=== PATIENT | male | born 1955 | race Caucasian/White ===

== ENCOUNTER 2016-12-19 20:54 | Emergency (ER) | payer OTHER ==
[~2016-12-19] VITALS: Ht 182.9 cm; Wt 108.2 kg
[2016-12-19 20:57] VITALS: BP 148/83; PULSE 71; RESP 16; O2SAT 98
[2016-12-19 21:21] LABS: BASOPHILS % (AUTO) 0.4 % (0-3); EOSINOPHILS % (AUTO) 0.3 % (0-5); MONOCYTES % (AUTO) 5.5 % (4-12); Mean Corpuscular Hemoglobin 29.6 pg (27.0-35.0); NEUTROPHILS % (AUTO) 77.9 % (40-74); Platelet Count 222 bil/L (150-400)
--- NOTE | 2016-12-19 21:35 | ED.REPORT ---
HPI-Abd Pain M 40 and Over Date of Service Dec 19, 2016 ED Provider: Rusty Ballard MD A 61 year old male with a history of hypertension, thyroid disease and diverticulitis approximately 15 years ago presents to the ED complaining of abdominal pain that began when the pt woke at 06:00 this morning. The pain has continued fairly constantly since. The pain is located in the LLQ and has been accompanied by belching, nausea and vomiting, though the pt denies dysuria. He experienced similar symptoms three weeks ago, which resolved on their own. Nursing Notes Stated Complaint: LEFT SIDE ABDOMINAL PAIN Chief Complaint: Male Abdominal Pain Nursing Notes Reviewed: Yes Allergies: Coded Allergies: No Known Drug Allergies (Verified Allergy, Unknown, 12/19/16) Scheduled PRN Naproxen (Naprosyn) 500 Mg Tablet 500 MG PO BID PRN PRN For Pain General Time Seen by MD: 21:35 Chief Complaint Abdominal pain Hx Obtained From: Patient Arrived By: Walk-in Sudden in Onset?: Yes Onset Occurred: 13 - 16 hours ago Symptom Duration: Since onset Recent Healthcare: No recent hospitalization Similar Sx Previous: Yes Past Medical History Past Medical History diverticulitis approximately 15 years ago thyroid disease Reports: Hypertension Past Surgical History left knee Smoking History Unknown if Ever Smoker Social History Other Social History: Good social support Ambulatory Status Independent Review of Systems Constitutional: Denies: Fever Respiratory: Denies: Non-productive cough, Shortness of breath Cardiovascular: Denies: Chest pain GI: Reports: Abdominal pain, Belching, Nausea, Vomiting, Denies: Diarrhea Male: Denies Dysuria Musculoskeletal: Denies: Back pain, Neck pain Complete sys rev & neg: except as marked. Physical Exam Initial Vital Signs Vital Signs (First) Date Time Temp Pulse Resp B/P Pulse Ox O2 Delivery O2 Flow Rate FiO2 12/19/16 20:57 36.6 71 16 148/83 98 Room Air Initial VS: Reviewed General/Constitutional: Awake, Alert Respiratory / Chest: Atraumatic, Breath sounds NL, Breath sounds = bilat, No respiratory distress Cardiovascular: Heart rate NL, Regular rhythm, Heart sounds NL Abdomen: Atraumatic, Soft, No guarding, No rebound mild tenderness in the LLQ no rigidity Back: Atraumatic, Full range of motion Head / Eyes: Atraumatic, Normocephalic, PERRL, EOMI ENT: Atraumatic, Airway patent, Mucous membranes moist Skin: Atraumatic, Color NL, No rash, Warm, Dry Neurologic: Oriented X3, Speech NL, No motor deficits, No sensory deficits Neck: Atraumatic, Supple, Full range of motion Upper Extremity / MS: Atraumatic, Full range of motion Lower Extremity / Pelvis / MS: Atraumatic, Full range of motion Psychiatric: Affect NL, Mood NL Interpretation & Diagnostics Lab Results Interpretation Result Diagram: 12/19/16211712/19/162117 Test 12/19/16 21:18 12/19/16 21:55 White Blood Count 10.1th/mm3 (3.8-10.1) Red Blood Count 5.00mil/mm3 (4.40-5.80) Hemoglobin 14.8g/dL (13.8-17.2) Hematocrit 43.0% (41.0-50.0) Mean Corpuscular Volume 86.0fL (81-100) Mean Corpuscular Hemoglobin 29.6pg (27.0-35.0) Mean Corpuscular Hemoglobin Concent 34.4% (32.0-37.0) Red Cell Distribution Width 12.7% (12.3-15.4) Platelet Count 222bil/L (150-400) Neutrophils (%) (Auto) 77.9% (40-74) Lymphocytes (%) (Auto) 15.8% (14-46) Monocytes (%) (Auto) 5.5% (4-12) Eosinophils (%) (Auto) 0.3% (0-5) Basophils (%) (Auto) 0.4% (0-3) Sodium Level 138mEq/L (134-144) Potassium Level 4.4mEq/L (3.5-5.2) Chloride Level 103mEq/L (97-108) Carbon Dioxide Level 21mmol/L (18-29) Blood Urea Nitrogen 13mg/dL (8-27) Creatinine 1.53mg/dL (0.76-1.27) Estimat Glomerular Filtration Rate 50mL/min (>59) Glucose Level 146mg/dL (60-99) Calcium Level 9.3mg/dL (8.5-10.1) Magnesium Level 1.8mg/dL (1.6-2.6) Total Bilirubin 0.4mg/dL (0.0-1.2) Aspartate Amino Transf (AST/SGOT) 20U/L (0-50) Alanine Aminotransferase (ALT/SGPT) 21U/L (0-44) Alkaline Phosphatase 77U/L (25-160) Total Protein 7.4g/dL (6.4-8.4) Albumin 4.5g/dL (3.4-5.0) Lipase 38U/L (13-60) Hold [place] Top Tube Received (Received) Urine Color Yellow (YELLOW) Urine Appearance Clear (CLEAR,HAZY) Urine pH 5.0 (5.0-8.0) Urine Specific [place] 1.030 (1.003-1.035) Urine Protein Negativemg/dL (NEG,TRACE) Urine Glucose (UA) Negativemg/dL (NEGATIVE) Urine Ketones Negativemg/dL (NEGATIVE) Urine Occult Blood Large (NEGATIVE) Urine Nitrite Negative (NEGATIVE) Urine Bilirubin Negative (NEGATIVE) Urine Urobilinogen Normalmg/dL (NORMAL) Urine Leukocyte Esterase Negative (NEGATIVE) Urine RBC 11-50/hpf (0-2) Urine WBC 6-10/hpf (0-5) Urine Epithelial Cells Many/hpf (NONE-MOD) Urine Crystals None seen (NONE SEEN) Urine Bacteria Few/hpf (NONE-FEW) Urine Hyaline Casts None/lpf (NONE) Urine Granular Casts None seen (NONE SEEN) Urine Waxy Casts None seen (NONE SEEN) Urine Red Blood Cell Casts None seen (NONE SEEN) Urine White Blood Cell Casts None seen (NONE SEEN) Urine Mucus Present (None Seen) Urine Trichomonas None seen (NONE SEEN) Urine Yeast None (NONE SEEN) Urinalysis Comment None Urine Culture Reflexed Indicated CT Abd / Pelvis Interpretation CONCLUSION: 1 mm mildly obstructing stone of the left ureterovesical junction. Diverticulosis without acute diverticulitis. Interpretation / Wet Read by: Interpret - Radiologist Re-Eval/Medical Decision Med Decision/Clinical Course 7-year-old with prior diverticulitis presents with left lower quadrant abdominal pain but appears to have a kidney stone clinically. Indeed, he has a 1 mm stone just at the UVJ which will pass in all likelihood fairly soon. Improved here at present fluids and discharged now with Percocet, Zofran, and plan for follow-up with PCP and with urology. Source of Hx: Old records Time of Eval: :01 Patient Status: Condition improved Re-Evaluation/Progress Note: Pt rechecked, who is resting. CT results are discussed. Time of Eval: 00:01 Patient Status: Condition improved Re-Evaluation/Progress Note: Pt rechecked, who is comfortable. The diagnosis and plan for discharge are discussed. The pt understands and agrees with the plan. All questions are addressed at this time. Counseled Regarding: Diagnosis, Lab results, Need for follow-up, When/why to return to ED Discharge & Departure Primary Impression: Ureteral colic Disposition: Home Vital Signs - All Vital Signs Date Time Temp Pulse Resp B/P Pulse Ox O2 Delivery O2 Flow Rate FiO2 12/19/16 20:57 36.6 71 16 148/83 98 Room Air )( All Prior VS Reviewed: Yes Condition: Stable Patient Instructions: Renal Colic (ED) Additional Instructions: You have a very small kidney stone which will pass with a high degree of certainty. Drink plenty of fluids. You will know fairly shortly that it has passed, when you are pain resolves quickly. Naprosyn twice daily for pain relief as baseline pain. Percocet sparingly additionally if needed. Zofran one tablet four times daily if needed for nausea. Follow-up with urology in the office. Referrals: Ishaan Carrera MD [facility] Scribe Attestation Portions of this note were transcribed by Andriy Saavedra. I, Dr. Ballard personally performed the history, physical exam and medical decision-making; I reviewed and confirmed the accuracy of the information in the transcribed note. copies to: Ishaan Carrera MD; [facility] Rusty Ballard MD Dec 19, 2016 21:35 ANDRIY SAAVEDRA Dec 19, 2016 22:09
[2016-12-19] MEDS ORDERED: 0.9% Sodium Chloride 1,000 ML IV ONE (21:40)
[2016-12-19] MEDS ORDERED: Ondansetron 2 mg/mL 2 mL Inj IVPUSH ONE (21:40)
[2016-12-19 21:46] LABS: Magnesium 1.8 mg/dL (1.6-2.6)
[2016-12-19 22:13] LABS: APPEARANCE,URINE CLEAR (CLEAR,HAZY); COLOR,URINE YELLOW (YELLOW); OCCULT BLOOD,URINE LARGE (NEGATIVE); UROBILINOGEN,URINE NORMAL (NORMAL)
[2016-12-19] MEDS ORDERED: HYDROmorphone 1 mg/mL Inj IVPUSH PRN (22:55)
[2016-12-19] MEDS ORDERED: _oxyCODONE/APAP 5-325 mg Tablet PO PRN (23:15)
[2016-12-19] MEDS ORDERED: _Ondansetron ODT 4 mg Tablet PO PRN (23:15)
[2016-12-19] MEDS ORDERED: NAPR500T PO (23:57)
--- NOTE | 2016-12-20 06:49 | DRSVH ---
PROCEDURE: CT ABDOMEN AND PELVIS WITH CONTRAST ([id number]) INDICATIONS: 61-year-old male with left lower quadrant abdominal pain. TECHNIQUE: After the administration of intravenous contrast, 5 mm thick sections acquired from the diaphragm to the symphysis. 5 mm coronal and sagittal reformats were acquired. For radiation dose reduction, the following was used: automated exposure control, adjustment of mA and/or kV according to patient siz e. COMPARISON: None. FINDINGS: Preliminary interpretation rendered by [facility]. Image quality: Excellent. ABDOMEN: Lung bases: Lung bases are clear. Heart size is normal. Solid organs: Liver and spleen are normal in size. 5 mm hypodense left hepatic lobe lesion is too s mall to definitively characterize, but statistically likely represents a tiny cyst. Gallbladder wall thickness is normal. Biliary system is non dilated. Pancreas enhances normally. No adrenal nodules . Kidneys demonstrate normal size and enhancement, with mild left hydroureteronephrosis. On axial im age 89, 2 mm stone is situated at the left ureterovesical junction. Peritoneum and bowel: Bowel loops demonstrate normal wall thickness and caliber. There is mild sigm oid colon diverticulosis. The appendix appears normal. No free fluid or air. Nodes and vessels: No retroperitoneal or mesenteric adenopathy by size criteria. Aorta and inferior vena cava are normal in size, with minimal aortic atherosclerosis. Miscellaneous: No ventral hernias. PELVIS: Genitourinary: Bladder wall thickness is normal. Prostate gland is normal in size. Miscellaneous: No inguinal hernias or adenopathy. Bones: No suspicious bony lesions. No vertebral body compression fractures. Right L5 pars defect i s present. There is mild lower lumbar and lower thoracic spine disc degeneration. IMPRESSION: 1. 1 mm left ureterovesical junction stone causes asymmetric mild left hydroureteronephrosis. 2. Sigmoid colon diverticulosis, without acute diverticulitis. 3. Right L5 pars defect, without L5-S1 spondylolisthesis. [facility]. Dictated by: Elijah Oseguera M.D. on 12/20/2016 at 6:41 Approved by: Elijah Oseguera M.D. on 12/20/2016 at 6:48
== END 2016-12-20 00:11 | disposition home or self-care (01) ==
LOC: SED 20:54
DX: N23 Unspecified renal colic (principal); I10 Essential (primary) hypertension; Z87.19 Personal history of other diseases of the digestive system
CPT/HCPCS: 36415; 74177; 80053; 81000; 83690; 83735; 85025; 87086; 96361; 96374; 96375; 99285; J1170; J1885; J2405; J7030; Q9967